=== PATIENT | female | born 1935 | race Caucasian/White ===

== ENCOUNTER 2023-08-09 17:49 | Emergency (ER) | payer SELFPAY ==
[2023-08-09 17:52] VITALS: BP 122/66; PULSE 78; RESP 18; TEMP 36.5; O2SAT 96
[2023-08-09 19:03] VITALS: BMI 23.5
--- NOTE | 2023-08-09 19:15 | CT_ITS ---
STUDY: CT CERVICAL SPINE WITHOUT CONTRAST REASON FOR EXAM: Female, 88 years old. Trauma RADIATION DOSAGE (If Supplied By Facility): CTDIvol = ( 15.68 ) mGy, DLP = ( 239.80 ) mGycm TECHNIQUE: High resolution transaxial imaging was performed without contrast material. Sagittal and coronal images were reconstructed. Individualized dose optimization techniques were used for this CT. COMPARISON: None FINDINGS: Normal craniovertebral junction. There is hypertrophy of the transverse ligament of the atlas with mild posterior displacement of the superior and inferior longitudinal fibers of the cruciform ligament, producing minimal ventral thecal sac flattening, but without cervical cord impingement. There are mild degenerative changes in the anterior atlantoaxial articulation. Normal odontoid process. Normal cervical lordosis. Normal vertebral bodies and posterior osseous elements. C2-3: Mild left facet hypertrophy and left uncovertebral hypertrophy produces mild left neural foraminal stenosis. No central spinal stenosis. C3-4: Mild bilateral facet hypertrophy. 2 mm retrolisthesis of C3 on C4 produces mild spinal stenosis, moderate right neural foraminal stenosis and mild left neural foraminal stenosis. C4-5: Mild bilateral facet hypertrophy. 2 mm of anterolisthesis of C4 on C5 with no spinal stenosis and mild bilateral neural foraminal stenosis. C5-6: Mild left facet hypertrophy with ankylosis of facet joint. Mild broad disc osteophyte complex with ankylosis of the disc space produces mild spinal stenosis and mild bilateral neural foraminal stenosis. C6-7: Mild bilateral facet hypertrophy. Mild broad disc osteophyte complex with ankylosis at this space produces mild spinal stenosis and mild bilateral neural foraminal stenosis. C7-T1: Normal endplates. Normal disc height and morphology. Normal central canal and intervertebral neuroforamina. Normal visualized soft tissue structures. CT/Spine Cervical without Contras IMPRESSION: No acute fracture or subluxation. Degenerative disc disease as described above. Electronically Signed: Cisco Savage MD at 20:50 EDT ,
--- NOTE | 2023-08-09 19:15 | CT_ITS ---
INDICATION: Trauma EXAMINATION: CT CHEST WITHOUT CONTRAST - CT Chest W/O Contrast Injection TECHNIQUE: Helically acquired images were obtained of the chest. A radiation dose optimization technique was used for this scan. IV Contrast dosage and agent: None. COMPARISON: None. FINDINGS: LUNGS, PLEURA AND LARGE AIRWAYS: No masses, consolidation, or edema. No pleural effusion or thickening. No pneumothorax. THYROID: No thyroid lesions. HEART AND PERICARDIUM: Heart size is normal. No pericardial effusion. 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 CORONARY ARTERIES: Coronary artery calcification is seen. VESSELS: Thoracic aorta is not dilated. MEDIASTINUM AND FREDDY: No mediastinal or hilar adenopathy. Esophagus is unremarkable. Small hiatal hernia. UPPER ABDOMEN: Status post cholecystectomy. BONES: No suspicious lytic or blastic abnormality. CT/Chest without Contrast IMPRESSION: 1. No pneumothorax or hemothorax. 2. 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 3. Small hiatal hernia. Electronically Signed: Cisco Savage MD at 20:37 EDT ,
--- NOTE | 2023-08-09 19:15 | CT_ITS ---
STUDY: CT FACIAL BONES WITHOUT CONTRAST REASON FOR EXAM: Female, 88 years old. Nasal Trauma RADIATION DOSAGE (If Supplied By Facility): CTDIvol = ( 29.38 ) mGy, DLP = ( 562.15 ) mGycm TECHNIQUE: The patient was scanned in a multi detector CT scanner. Sagittal and coronal images were reconstructed. Individualized dose optimization techniques were used for this CT. COMPARISON: None. FINDINGS: Subcutaneous emphysema within the soft tissues of the superior aspect of the nasal bones consistent with laceration. Normal orbital ewaver and orbital contents. Normal nasal bones and anterior nasal spine. Normal facial bones. There is no demonstrated fracture. Normal visualized paranasal sinuses. CT/Sinus/Facial Bone IMPRESSION: Normal unenhanced CT of the facial bones. Suspect laceration just superior to the nose. Electronically Signed: Cisco Savage MD at 20:42 EDT ,
--- NOTE | 2023-08-09 19:15 | CT_ITS ---
STUDY: CT BRAIN WITHOUT CONTRAST REASON FOR EXAM: Female, 88 years old. trauma RADIATION DOSAGE (If Supplied By Facility): CTDIvol = ( 44.99 ) mGy, DLP = ( 796.11 ) mGycm TECHNIQUE: Transaxial CT imaging of the brain was performed without administration of intravenous contrast material. Individualized dose optimization techniques were used for this CT. COMPARISON: No relevant priors. FINDINGS: Normal soft tissue structures. Normal calvarium. There is moderate cerebral atrophy with widening of the extra-axial spaces and ventricular dilatation. There are areas of decreased attenuation within the white matter tracts of the supratentorial brain, consistent with microvascular disease changes. Normal basal ganglia and thalami. Normal brainstem. Normal cerebellum. There is no intracranial hemorrhage. There are no findings of an acute ischemic infarction. Normal visualized paranasal sinuses. CT/Brain/Head without Contrast IMPRESSION: Chronic involutional changes of the brain. Electronically Signed: Cisco Savage MD at 20:25 EDT ,
--- NOTE | 2023-08-09 19:17 | EX.ED.GENINJ ---
HPI <Kade Guajardo MD - Last Filed: 08/09/23 21:20> History of Present Illness Chief Complaint: Head Injury Narrative Narrative: 88-year-old female presents status post mechanical fall. She fell forward onto her face. She complains of nasal pain and bleeding, there was no loss of consciousness. Additionally she has left-sided chest wall pain. She denies any neck pain, or other injury. She does not take blood thinners. She is unsure of her last tetanus immunization. She sustained a laceration to her upper lip underneath her nose, and on the middle portion of her nose between the nares. PFSH <Kade Guajardo MD - Last Filed: 08/09/23 21:20> PFSH Allergy/AdvReac Type Severity Reaction Status Date / Time No Known Allergies Allergy Verified 08/09/23 17:51 Surgical History (Updated 08/09/23 @ 19:04 by Zulma Gaitan) Heart valve replaced Social History Smoking Status: Never smoker ROS <Kade Guajardo MD - Last Filed: 08/09/23 21:20> ROS ED ROS Narrative Constitutional: No fever, no chills. HEENT: No sore throat. No neck pain. No loss of vision. No rhinorrhea. Positive facial pain. Laceration to nose/upper lip. Positive nasal pain. Cardiovascular: Left chest wall/chest pain. No palpitations. No pedal edema. Respiratory: No cough, no shortness of breath. Abdominal: No abdominal pain. No nausea. No vomiting. Genitourinary: No dysuria. No hematuria. Musculoskeletal: No myalgias. No arthralgias. Neurologic: No headaches. No dizziness. No lightheadedness. Skin: No rash. No change in color. Psychiatric: No depression. No anxiety. EXAM <Kade Guajardo MD - Last Filed: 08/09/23 21:20> Physical Exam Narrative Exam Narrative: Afebrile. Vital signs noted. GCS 15. ABCs intact. HEENT: Normocephalic. Positive 3 cm laceration middle portion of the nose between nares and upper lip. Positive ecchymosis nares. No septal hematoma. No active bleeding. PERRL, EOMI. Neck soft and supple. No point tenderness or step off. Full range of motion. Cardiovascular: Regular rate and rhythm. No murmurs, rubs, or gallops appreciated. Mild tenderness to palpation left chest wall, no crepitance. Respiratory: No tachypnea. Lungs clear to auscultation bilaterally. Gastrointestinal: Abdomen soft, nontender, with normoactive bowel sounds. No rebound or guarding. Neurological: Awake. Alert. Nonfocal, nonlateralizing. Skin: No rash. Normal color. No pallor. Musculoskeletal: No pedal edema. Full range of motion extremities. Const Vital Signs: 08/09/23 17:52 08/09/23 19:03 08/09/23 19:51 Temperature 97.7 F L Temperature Source Temporal Pulse Rate 78 84 Respiratory Rate 18 16 Respiratory Effort Normal Respiratory Depth Normal Respiratory Pattern Normal Blood Pressure 122/66 H 120/64 Blood Pressure Mean 84 82 Pulse Ox 96 97 Oxygen Delivery Method Room Air Room Air 08/09/23 21:00 Temperature Temperature Source Pulse Rate 71 Respiratory Rate 16 Respiratory Effort Respiratory Depth Respiratory Pattern Blood Pressure 118/74 Blood Pressure Mean 88 Pulse Ox 98 Oxygen Delivery Method Room Air <ANA Samuels - Last Filed: 08/09/23 21:13> Physical Exam Const Vital Signs: 08/09/23 17:52 08/09/23 19:03 08/09/23 19:51 Temperature 97.7 F L Temperature Source Temporal Pulse Rate 78 84 Respiratory Rate 18 16 Respiratory Effort Normal Respiratory Depth Normal Respiratory Pattern Normal Blood Pressure 122/66 H 120/64 Blood Pressure Mean 84 82 Pulse Ox 96 97 Oxygen Delivery Method Room Air Room Air 08/09/23 21:00 Temperature Temperature Source Pulse Rate 71 Respiratory Rate 16 Respiratory Effort Respiratory Depth Respiratory Pattern Blood Pressure 118/74 Blood Pressure Mean 88 Pulse Ox 98 Oxygen Delivery Method Room Air PROC <ANA Samuels - Last Filed: 08/09/23 21:13> Procedures Lacerations Laceration: Length: 1.18 in Depth: Sub Q Shape: Linear Prep: Chlorhexadine Laceration repair: Irrigated and Lidocaine Number of Sutures/[place]: 6 Suture Information: Ethilon, Simple and 6-0 Comment: Laceration copiously irrigated with saline, cleaned with chlorhexidine, patient tolerated procedure well. MDM <Kade Guajardo MD - Last Filed: 08/09/23 21:20> MDM MDM Narrative Medical decision making narrative: With her fall, concern is for nasal fracture in the differential diagnosis versus nasal contusion. She could also have a cervical spine fracture or intracranial hemorrhage. Her normal neurological examination goes against intracranial hemorrhage. Her wound will be sutured. Additionally, CT of the thorax will be obtained to look for rib fracture. I doubt pneumothorax based on her clinical exam. Her tetanus immunization was updated. I feel this was more of a mechanical fall so I do not feel that laboratory work is indicated currently. I reviewed the CT imaging of the brain and reviewed the radiology report which shows no evidence of an acute fracture or hemorrhage. Additionally I reviewed the CT report/radiology report for the CT of the cervical spine which shows degenerative changes but no acute fracture. CT of the facial bone report was reviewed and there is no evidence of acute fracture of the nasal area or facial bones. Additionally, CT of the thorax radiology report reviewed and there is no evidence of pneumothorax or broken rib. At this point in time, after IRINA had repaired the laceration of the face, she will be discharged to follow-up with her primary care provider for suture removal in 5 to 7 days. She will take [id number] analgesics as needed. I feel she can be discharged to follow-up. Return instructions to the emergency department were reviewed. Patient agreeable to the plan. Disposition is discharged in stable condition. History & Record Review Discussion w/independent historian: Patient Radiography Diagnostic Testing: Clinical Impression(s) from Imaging Studies Brain CT 08/09/23 19:15 IMPRESSION: Chronic involutional changes of the brain. Electronically Signed: Cisco Savage MD at 20:25 EDT Reading Location ID and State: [email or web address] / [employer] , Service support , Cervical Spine CT 08/09/23 19:15 IMPRESSION: No acute fracture or subluxation. Degenerative disc disease as described above. Electronically Signed: Cisco Savage MD at 20:50 EDT Reading Location ID and State: [id number] / [employer] , Service support , Chest CT 08/09/23 19:15 IMPRESSION: 1. No pneumothorax or hemothorax. 2. 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 3. Small hiatal hernia. Electronically Signed: Cisco Savage MD at 20:37 EDT , Facial/Sinus 08/09/23 19:15 IMPRESSION: Normal unenhanced CT of the facial bones. Suspect laceration just superior to the nose. Electronically Signed: Cisco Savage MD at 20:42 EDT Reading Location ID and State: [id number] / [employer] , Service support , <ANA Samuels - Last Filed: 08/09/23 21:13> MDM Radiography Diagnostic Testing: Clinical Impression(s) from Imaging Studies Brain CT 08/09/23 19:15 IMPRESSION: Chronic involutional changes of the brain. Electronically Signed: Cisco Savage MD at 20:25 EDT Reading Location ID and State: [id number] / [employer] , Service support , Cervical Spine CT 08/09/23 19:15 IMPRESSION: No acute fracture or subluxation. Degenerative disc disease as described above. Electronically Signed: Cisco Savage MD at 20:50 EDT , Chest CT 08/09/23 19:15 IMPRESSION: 1. No pneumothorax or hemothorax. 2. 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 3. Small hiatal hernia. Electronically Signed: Cisco Savage MD at 20:37 EDT , Facial/Sinus 08/09/23 19:15 IMPRESSION: Normal unenhanced CT of the facial bones. Suspect laceration just superior to the nose. Electronically Signed: Cisco Savage MD at 20:42 EDT , Discharge Plan Triage Chief Complaint: Head Injury ED Provider: Kade Guajardo Dx/Rx/DC Orders Clinical Impression: Facial laceration, Chest wall contusion, Fall Instructions: ED Chest Wall Contusion, ED Facial Contusion, ED Head Injury (Adult), ED Laceration, All Closures Primary Care Provider: Toño Gomes Referrals: Toño Gomes DO [Primary Care Provider] - 7 Days for suture removal Disposition Disposition: Home, Self Care
[2023-08-09 19:51] VITALS: BP 120/64; PULSE 84; RESP 16; O2SAT 97
[2023-08-09] MEDS: Lidocaine 1% (20 ml mdv) 20 ML Vial 5 ML INFILT (20:03)
[2023-08-09] MEDS: Diphth,Pertuss(Acell),Tet Vac 0.5 ML Vial IM (20:03)
[2023-08-09 21:00] VITALS: BP 118/74; PULSE 71; RESP 16; O2SAT 98
== END 2023-08-09 21:23 | disposition home or self-care (01) ==
PROVIDERS: Emergency Provider Emergency Medicine; PCP Family Medicine; Visit Provider Emergency Medicine
DX: S01.81XA Laceration without foreign body of other part of head, initial encounter (principal); S20.20XA Contusion of thorax, unspecified, initial encounter; S01.511A Laceration without foreign body of lip, initial encounter; W19.XXXA Unspecified fall, initial encounter; Z23 Encounter for immunization
CPT/HCPCS: 12013; 70450; 70486; 71250; 72125; 90471; 90715; 99282

== ENCOUNTER 2023-08-10 09:57 | Emergency (ER) | payer MEDICARE, SELFPAY ==
[2023-08-10 09:58] VITALS: BP 131/63; PULSE 77; RESP 18; TEMP 36.6; O2SAT 100
[2023-08-10 10:07] VITALS: BMI 24.9
--- NOTE | 2023-08-10 10:37 | CT_ITS ---
STUDY: CT FACIAL BONES WITHOUT CONTRAST REASON FOR EXAM: Female, 88 years old. Facial injury due to a fall. RADIATION DOSAGE (If Supplied By Facility): CTDIvol = ( 29.38 ) mGy, DLP = ( 547.46 ) mGycm TECHNIQUE: The patient was scanned in a multi detector CT scanner. Sagittal and coronal images were reconstructed. Individualized dose optimization techniques were used for this CT. COMPARISON: None. FINDINGS: Soft tissue swelling overlying the nasal region with findings suggestive of a laceration. Normal orbital weaver and orbital contents. Suspect a nondisplaced fracture through the nasal bone. Normal facial bones. There is no demonstrated fracture. Minimal mucosal thickening along the posterior medial right sphenoid sinus. Hypertrophy of the right inferior turbinate. CT/Sinus/Facial Bone IMPRESSION: Nondisplaced fracture of the nasal bone with the surrounding soft tissue swelling and possible laceration. Electronically Signed: Shahid Villalpando MD at 11:15 EDT ,
--- NOTE | 2023-08-10 10:37 | CT_ITS ---
STUDY: CT CERVICAL SPINE WITHOUT CONTRAST REASON FOR EXAM: Female, 88 years old. Injury due to a fall. RADIATION DOSAGE (If Supplied By Facility): CTDIvol = ( 20.7 ) mGy, DLP = ( 365.6 ) mGycm TECHNIQUE: High resolution transaxial imaging was performed without contrast material. Sagittal and coronal images were reconstructed. Individualized dose optimization techniques were used for this CT. COMPARISON: Comparison is made with prior study dated August 09, 2023. FINDINGS: Normal craniovertebral junction. There are degenerative changes of the anterior atlantoaxial articulation. Normal odontoid process. There is straightening of the normal cervical lordosis. Facet joint osteoarthritis and hypertrophy. C2-3: Facet joint osteoarthritis and hypertrophy worse on the left side. Uncovertebral arthrosis. No significant stenosis seen. C3-4: Marked degree of disc space narrowing. Facet joint osteoarthritis and hypertrophy worse on the right side. Uncovertebral arthrosis. Bilateral neural foraminal stenosis worse on the right side. Stable minimal 2 mm retrolisthesis of C3 on C4. This most likely secondary to the facet joint osteoarthritis. C4-5: Marked degree of disc space narrowing. Facet joint osteoarthritis and hypertrophy. Uncovertebral arthrosis. Mild bilateral neural foraminal stenosis. C5-6: Moderate degree of disc space narrowing with spondylosis and subchondral sclerosis. Facet joint osteoarthritis and hypertrophy. No significant neural foraminal stenosis seen. C6-7: Facet joint osteoarthritis and hypertrophy. C7-T1: Normal endplates. Normal disc height and morphology. Normal central canal and intervertebral neuroforamina. Calcification of the carotid bifurcations bilaterally. CT/Spine Cervical without Contras IMPRESSION: Multilevel degenerative changes, as described above. Stable examination. Electronically Signed: Shahid Villalpando MD at 11:13 EDT ,
--- NOTE | 2023-08-10 10:37 | CT_ITS ---
STUDY: CT BRAIN WITHOUT CONTRAST REASON FOR EXAM: Female, 88 years old. Head injury. Confusion and laceration to the face. RADIATION DOSAGE (If Supplied By Facility): CTDIvol = ( 44.99 ) mGy, DLP = ( 745.49 ) mGycm TECHNIQUE: Transaxial CT imaging of the brain was performed without administration of intravenous contrast material. Individualized dose optimization techniques were used for this CT. COMPARISON: Comparison is made with prior study of August 09, 2023. FINDINGS: Soft tissue swelling overlying the nasal bones with possible laceration. No nasal bone fracture is seen at this time. Normal calvarium. There is moderate cerebral atrophy with widening of the extra-axial spaces and ventricular dilatation. There are areas of decreased attenuation within the white matter tracts of the supratentorial brain, consistent with microvascular disease changes. Normal basal ganglia and thalami. Normal brainstem. There is mild cerebellar atrophy. There is no intracranial hemorrhage. There are no findings of an acute ischemic infarction. Atherosclerotic calcification of the cavernous portions of the internal carotid arteries bilaterally. Normal visualized paranasal sinuses. CT/Brain/Head without Contrast IMPRESSION: Chronic involutional changes of the brain. Soft tissue swelling in the region of the nose and possible laceration. No fracture is seen. Electronically Signed: Shahid Villalpando MD at 11:10 EDT ,
--- NOTE | 2023-08-10 10:38 | EX.ED.DYSGE1 ---
HPI History of Present Illness Chief Complaint: Confusion Informant: patient and family Narrative Narrative: 88-year-old female presenting to the emergency room with head injury. Patient reportedly fell going out of her daughter's condo into the garage down a step. She hit her face on the ground. She broke her glasses contusing and abrading her face. She notes contusions to her bilateral knees and abrasions to the bilateral hands. No reported loss of consciousness. Daughter states that she stayed with her 2 nights ago and had some confusion during the night but last night was reportedly confused most of the night. She did not receive her nighttime sedating medicine which daughter states may be contributing. PFSH PFSH Allergy/AdvReac Type Severity Reaction Status Date / Time No Known Allergies Allergy Verified 08/10/23 10:00 Surgical History Heart valve replaced Social History Smoking Status: Never smoker ROS ROS ED Constitutional Constitutional ED: Denies chills, fever(s) or weight loss Eyes Eyes: Denies blurry vision, change in vision or diplopia ENT ENT ED: Denies ear pain, rhinorrhea or sore throat Cardiovascular Cardiovascular: Denies chest pain, orthopnea, palpitations or racing heartbeat Respiratory/Chest Respiratory/Chest: Denies cough, dyspnea or orthopnea Gastrointestinal Gastrointestinal: Denies abdominal pain, diarrhea, nausea or vomiting Genitourinary Genitourinary ED: Denies dysuria, hematuria or urinary frequency Musculoskeletal Musculoskeletal: Denies arthralgias or myalgias Integumentary Reports other Details: Contusions and abrasions ; Denies abscess or rash Neurologic Neurologic: Reports other Details: Confusion at night ; Denies headache(s) or weakness Psychiatric Psychiatric: Denies anxiety, depression, suicidal ideation or suicidal thoughts Endocrine Endocrinology: Denies polydipsia, polyphagia or polyuria Allergic/Immunologic Allergic/Immunologic ED: Denies mouth swelling, tongue swelling or urticaria EXAM Physical Exam Const Vital Signs: 08/10/23 09:58 08/10/23 11:00 08/10/23 12:00 Temperature 97.8 F Temperature Source Temporal Pulse Rate 77 80 72 Respiratory Rate 18 17 19 H Blood Pressure 131/63 H 125/62 H 151/60 H Blood Pressure Mean 85 83 90 Pulse Ox 100 97 94 Oxygen Delivery Method Room Air Room Air Room Air 08/10/23 12:15 Temperature 97.8 F Temperature Source Pulse Rate 82 Respiratory Rate 18 Blood Pressure 145/80 H Blood Pressure Mean 101 Pulse Ox 95 Oxygen Delivery Method Positive well nourished and well developed General Appearance ED: well developed HEENT Reports normocephalic and moist mucous membranes HEENT Narrative: Patient has inferior orbital contusions nasal contusion and abrasion and chin/facial contusions. No obvious septal hematoma noted. Midface stable. Eyes PERRL and EOMs intact bilaterally Neck no lymphadenopathy, supple and no JVD Resp normal respiratory effort and clear to auscultation bilaterally Cardio regular rate, regular rhythm and no murmurs GI normal to inspection, nondistended, normoactive bowel sounds and non-tender Palpation: soft Back/Spine no CVA tenderness and normal ROM Extremity Extremity Narrative: Patient with bilateral knee contusions. No significant effusion. No obvious deformity. Extensor mechanisms are intact. Bilateral hand abrasions on the dorsum. No evidence of secondary infection. General Extremety ED: Negative for edema General Extremity: Negative for edema Neuro oriented x3 and CN's II-XII intact bilaterally Sensorium / Orientation: alert Motor Exam: strength 5/5 throughout Psych mental status grossly normal Mood & Affect: Negative for depressed or tearful Skin no rashes or lesions noted MDM MDM MDM Narrative Medical decision making narrative: CT of the brain facial bones and cervical spine demonstrates a nondisplaced nasal fracture. No intracranial hemorrhage noted. The patient and her daughter will have a conversation with her primary care doctor about dementia. This may be made worse with the recent head injury. Daughter will be staying with her. Return if worsening or concerns History & Record Review Discussion w/independent historian: Patient and Family Radiography Diagnostic Testing: Clinical Impression(s) from Imaging Studies Brain CT 08/10/23 10:37 IMPRESSION: Chronic involutional changes of the brain. Soft tissue swelling in the region of the nose and possible laceration. No fracture is seen. Electronically Signed: Shahid Villalpando MD at 11:10 EDT , Cervical Spine CT 08/10/23 10:37 IMPRESSION: Multilevel degenerative changes, as described above. Stable examination. Electronically Signed: Shahid Villalpando MD at 11:13 EDT , Facial/Sinus 08/10/23 10:37 IMPRESSION: Nondisplaced fracture of the nasal bone with the surrounding soft tissue swelling and possible laceration. Electronically Signed: Shahid Villalpando MD at 11:15 EDT , Discharge Plan Triage Chief Complaint: Confusion ED Provider: Asif Hernandez Dx/Rx/DC Orders Clinical Impression: Fracture of nasal bone, Concussion, Contusion of face, Fall, Contusion of knee, left, Contusion of knee, right, Abrasion of hand, left, Abrasion of hand, right Instructions: ED Concussion, ED Facial Contusion Primary Care Provider: Toño Gomes Referrals: Toño Gomes DO [Primary Care Provider] - Activity Restrictions/Additional Instructions: Please discuss dementia with your primary care doctor especially in light of her new symptoms before the fall. Ice to the face for swelling 20-minute sessions 4-5 times per day if possible Monitor abrasions for evidence of secondary infection, normal local wound care. Disposition Disposition: Home, Self Care Discharge Date/Time: 08/10/23 12:32
[2023-08-10 11:00] VITALS: BP 125/62; PULSE 80; RESP 17; O2SAT 97
[2023-08-10 12:00] VITALS: BP 151/60; PULSE 72; RESP 19; O2SAT 94
[2023-08-10 12:15] VITALS: BP 145/80; PULSE 82; RESP 18; TEMP 36.6; O2SAT 95
== END 2023-08-10 12:32 | disposition home or self-care (01) ==
PROVIDERS: Emergency Provider Emergency Medicine; PCP Family Medicine; Visit Provider Emergency Medicine
DX: S02.2XXA Fracture of nasal bones, initial encounter for closed fracture (principal); S60.222A Contusion of left hand, initial encounter; S60.512A Abrasion of left hand, initial encounter; S80.01XA Contusion of right knee, initial encounter; S80.02XA Contusion of left knee, initial encounter; S06.0X0A Concussion without loss of consciousness, initial encounter; S60.511A Abrasion of right hand, initial encounter; S80.212A Abrasion, left knee, initial encounter; R41.0 Disorientation, unspecified; S60.221A Contusion of right hand, initial encounter; S80.211A Abrasion, right knee, initial encounter; W10.9XXA Fall (on) (from) unspecified stairs and steps, initial encounter
CPT/HCPCS: 70450; 70486; 72125; 99282

== ENCOUNTER → 2023-10-04 05:00 | Outpatient (REF) | payer MEDICARE, SELFPAY ==
[2023-10-04 08:50] LABS: Hematocrit 28.8 % (37-47); Mean Corp Hgb Conc 31.3 g/dL (32-36); Mean Corpuscular Volume 99.3 fL (81-99); Mean Platelet Vol. 10.7 fl (6.2-12.0); Platelet Count 165 K/mm3 (150-450); RBC Distribution Width CV 12.6 % (11.6-14.6); RBC Distribution Width SD 46.1 fl (35.1-43.9); White Blood Count 6.1 K/mm3 (4.4-11.0)
[2023-10-04 09:22] LABS: Anion Gap 4 (5-15); BUN 22 mg/dL (7-18); Calcium,Total 9.1 mg/dL (8.5-10.1); Chloride 107 mmol/L (98-107); Creatinine, Serum 1.22 mg/dL (0.55-1.02); EST Glomerular Filtration Rate 44 mL/min (>60); Est Glom Filt Rate - Afr Amer 53 mL/min (>60); Glucose 92 mg/dL (74-106); Potassium 4.7 mmol/L (3.5-5.1); Sodium Level 138 mmol/L (136-145)
== END ==
LOC: OLS.SW 05:00
PROVIDERS: PCP Family Medicine; Visit Provider Family Medicine
DX: Z02.2 Encounter for examination for admission to residential institution (principal)
CPT/HCPCS: 36415; 80048; 85027

== ENCOUNTER → 2024-04-27 | Outpatient (REF) | payer MEDICARE, SELFPAY ==
[2024-04-27 09:09] LABS: Hematocrit 29.4 % (37-47); Hemoglobin 9.6 g/dL (12.0-15.0); Mean Corp Hgb Conc 32.7 g/dL (32-36); Mean Corpuscular Hgb 31.2 pg (27.0-32.0); Mean Corpuscular Volume 95.5 fL (81-99); Mean Platelet Vol. 10.1 fl (6.2-12.0); Platelet Count 165 K/mm3 (150-450); RBC Distribution Width SD 44.6 fl (35.1-43.9); Red Blood Count 3.08 M/mm3 (4.2-5.4); White Blood Count 6.1 K/mm3 (4.4-11.0)
[2024-04-27 09:19] LABS: Anion Gap 6 (5-15); BUN 26 mg/dL (7-18); BUN/Creat Ratio 22.4 RATIO (10-20); Calcium,Total 8.9 mg/dL (8.5-10.1); Chloride 101 mmol/L (98-107); Creatinine, Serum 1.16 mg/dL (0.55-1.02); EST Glomerular Filtration Rate 47 mL/min (>60); Est Glom Filt Rate - Afr Amer 57 mL/min (>60); Glucose 85 mg/dL (74-106); Potassium 4.8 mmol/L (3.5-5.1); Sodium Level 132 mmol/L (136-145)
== END ==
LOC: OLS.SW 07:26
PROVIDERS: PCP Family Medicine; Visit Provider Internal Medicine
DX: F03.90 Unspecified dementia, unspecified severity, without behavioral disturbance, psychotic disturbance, mood disturbance, and anxiety (principal); I10 Essential (primary) hypertension
CPT/HCPCS: 36415; 80048; 83735; 85027

== ENCOUNTER → 2024-05-01 05:00 | Outpatient (REF) | payer MEDICARE, SELFPAY ==
[2024-05-01 09:46] LABS: Cholesterol 122 mg/dL (200); High Density Lipoprotein 67 mg/dL; Triglycerides 80 mg/dL; Very Low Density Lipoprotein 16 mg/dL (5-40)
== END ==
LOC: OLS.SW 05:00
PROVIDERS: PCP Family Medicine; Visit Provider Internal Medicine
DX: E78.5 Hyperlipidemia, unspecified (principal); E03.9 Hypothyroidism, unspecified
CPT/HCPCS: 36415; 80061; 84443

== ENCOUNTER → 2024-05-19 | Outpatient (REF) | payer MEDICARE, SELFPAY ==
[2024-05-19 08:13] LABS: Vitamin B12 958 pg/mL (211-911); Vitamin D,25 Hydroxy 19.7 ng/mL
== END ==
LOC: OLS.SW 05:00
PROVIDERS: PCP Family Medicine; Visit Provider Internal Medicine
DX: I10 Essential (primary) hypertension (principal); I73.9 Peripheral vascular disease, unspecified; F03.90 Unspecified dementia, unspecified severity, without behavioral disturbance, psychotic disturbance, mood disturbance, and anxiety; I35.0 Nonrheumatic aortic (valve) stenosis
CPT/HCPCS: 36415; 82306; 82607; 82746

== ENCOUNTER → 2024-06-20 | Outpatient (REF) | payer MEDICARE, SELFPAY | LOC: OLS.SW 04:00 | PROVIDERS: PCP Family Medicine; Referring Provider Internal Medicine; Visit Provider Internal Medicine | DX: E03.9 Hypothyroidism, unspecified (principal); I10 Essential (primary) hypertension | CPT/HCPCS: 36415; 84443 ==

== ENCOUNTER → 2024-08-08 | Outpatient (REF) | payer MEDICARE, MEDICAID, SELFPAY ==
[2024-08-08 08:48] LABS: Vitamin D,25 Hydroxy 33.1 ng/mL (30-100)
== END ==
LOC: OLS.SW 05:00
PROVIDERS: PCP Family Medicine; Visit Provider Family Medicine
DX: E55.9 Vitamin D deficiency, unspecified (principal)
CPT/HCPCS: 36415; 82306

== ENCOUNTER → 2024-08-09 07:00 | Outpatient (REF) | payer MEDICARE, SELFPAY ==
[2024-08-09 08:34] LABS: Vitamin D,25 Hydroxy 34.4 ng/mL (30-100)
== END ==
LOC: OLS.SW 07:00
PROVIDERS: PCP Family Medicine; Visit Provider Family Medicine
DX: M62.81 Muscle weakness (generalized) (principal); R26.89 Other abnormalities of gait and mobility
CPT/HCPCS: 36415; 82306

== ENCOUNTER → 2024-09-12 | Outpatient (REF) | payer MEDICARE, SELFPAY ==
[2024-09-12 08:31] LABS: Hematocrit 28.6 % (37-47); Hemoglobin 9.3 g/dL (12.0-15.0); Mean Corp Hgb Conc 32.5 g/dL (32-36); Mean Corpuscular Hgb 31.2 pg (27.0-32.0); Mean Platelet Vol. 10.4 fl (6.2-12.0); Platelet Count 182 K/mm3 (150-450); RBC Distribution Width CV 13.4 % (11.6-14.6); RBC Distribution Width SD 47.6 fl (35.1-43.9); Red Blood Count 2.98 M/mm3 (4.2-5.4); White Blood Count 5.5 K/mm3 (4.4-11.0)
[2024-09-12 09:22] LABS: Anion Gap 9 (5-15); BUN 40 mg/dL (4-19); BUN/Creat Ratio 29.3 RATIO (10-20); Calcium,Total 9.5 mg/dL (7.6-11.0); Carbon Dioxide 23.1 mmol/L (21.0-32.0); Chloride 105 mmol/L (98-108); Cholesterol 215 mg/dL (<=200); Creatinine, Serum 1.35 mg/dL (0.70-1.20); EST Glomerular Filtration Rate 38 (>60); Glucose 77 mg/dL (70-99); High Density Lipoprotein 69 mg/dL; Low Density Lipoprotein Calc. 130 mg/dL; Potassium 5.8 mmol/L (3.3-5.1); Sodium Level 137 mmol/L (133-145); Triglycerides 83 mg/dL; Very Low Density Lipoprotein 17 mg/dL (5-40); Vitamin D,25 Hydroxy 44.9 ng/mL (30-100); cholesterol:hdl ratio screen 3.14
== END ==
LOC: OLS.SW 05:00
PROVIDERS: PCP Family Medicine; Visit Provider Family Medicine
DX: E78.5 Hyperlipidemia, unspecified (principal); E03.9 Hypothyroidism, unspecified; E55.9 Vitamin D deficiency, unspecified
CPT/HCPCS: 36415; 80048; 80061; 82306; 84443; 85027